=== PATIENT | female | born 1990 | race Two or more races ===

== ENCOUNTER 2017-11-12 22:03 | Emergency (ER) | payer SELFPAY ==
[~2017-11-12] VITALS: Ht 154.9 cm; Wt 45.8 kg
[2017-11-12 22:17] VITALS: BP 155/92
== END 2017-11-13 00:21 | disposition home or self-care (01) ==
LOC: ER 22:03
DX: S70.02XA Contusion of left hip, initial encounter (principal); S70.12XA Contusion of left thigh, initial encounter; Z88.8 Allergy status to other drugs, medicaments and biological substances; W18.39XA Other fall on same level, initial encounter; Y93.89 Activity, other specified; Y99.8 Other external cause status; Y92.89 Other specified places as the place of occurrence of the external cause
CPT/HCPCS: 72170